=== PATIENT | female | born 1960 | race Caucasian/White ===

== ENCOUNTER 2018-10-24 20:17 | Emergency (ER) | payer MEDICAID ==
[~2018-10-24] VITALS: Ht 162.6 cm; Wt 124.7 kg
[2018-10-24 20:31] VITALS: BP_SYST 155
[2018-10-24] MEDS ORDERED: LOSA1TAB37 PO (20:37)
[2018-10-24] MEDS ORDERED: ASPI-1153 PO (20:37)
[2018-10-24] MEDS ORDERED: PRO40 PO (20:38)
[2018-10-24] MEDS ORDERED: PRAV40TA PO (20:39)
[2018-10-24] MEDS ORDERED: MONT10TA25 PO (20:39)
[2018-10-24] MEDS ORDERED: ONDANSETRON 4 MG ODT TAB PO ONE (21:45)
[2018-10-24] MEDS ORDERED: ACETAMINOPHEN/CODEINE 300 MG-30 MG TABLET PO ONE (21:45)
[2018-10-24 22:06] LABS: BASOPHILS # (AUTO) 0.1 K/uL (0.0-0.2); BASOPHILS % (AUTO) 1.6 % (0.0-2.0); EOSINOPHILS # (AUTO) 0.2 K/uL (0.0-0.4); EOSINOPHILS % (AUTO) 2.7 % (0.0-4.0); HEMATOCRIT 45.3 % (36-48); HEMOGLOBIN 14.3 g/dL (12.0-16.0); LYMPHOCYTES # (AUTO) 2.4 K/uL (1.0-5.5); LYMPHOCYTES % (AUTO) 41.3 % (20.5-51.5); MEAN CORPUSCULAR HEMOGLOBIN 30 pg (27-31); MEAN CORPUSCULAR HGB CONC 32 % (32-36); MEAN CORPUSCULAR VOLUME 94 fL (79.0-98.0); MONOCYTES # (AUTO) 0.3 K/uL (0.0-1.0); MONOCYTES % (AUTO) 5.7 % (1.7-9.3); NEUTROPHILS # (AUTO) 2.9 K/uL (1.8-7.7); NEUTROPHILS % (AUTO) 48.7 % (40.0-70.0); PLATELET COUNT (AUTO) 280 K/uL (130-430); RED BLOOD CELL COUNT(AUTO) 4.85 MIL/uL (4.2-6.2); RED CELL DISTRIBUTION WIDTH 12.3 % (9.0-15.0); WHITE BLOOD COUNT (AUTO) 5.9 K/uL (4.8-10.8)
[2018-10-24 22:10] LABS: CALCIUM 9.4 mg/dL (8.4-11.0); CREATININE 0.7 mg/dL (0.55-1.30); POTASSIUM 3.6 mmol/L (3.5-5.1)
[2018-10-24 22:15] LABS: ALBUMIN 3.7 g/dL (3.4-4.8); TOTAL BILIRUBIN 0.5 mg/dL (0.0-1.0)
[2018-10-24 23:53] VITALS: BP_SYST 137
== END 2018-10-24 23:15 | disposition home or self-care (01) ==
LOC: SED 20:17
DX: R51 Headache (principal); K21.9 Gastro-esophageal reflux disease without esophagitis; Z90.49 Acquired absence of other specified parts of digestive tract; Z90.89 Acquired absence of other organs; Z79.82 Long term (current) use of aspirin; Z79.899 Other long term (current) drug therapy
CPT/HCPCS: 36415; 70450; 80053; 85025; 99284; Q0162